=== PATIENT | female | born 1985 | race Two or more races ===

== ENCOUNTER 2024-12-02 10:41 | Emergency (ER) | payer MEDICAID, OTHER ==
[~2024-12-02] VITALS: Ht 162.6 cm; Wt 64.0 kg
[2024-12-02] MEDS ORDERED: HYDR-3682 PO (12:34)
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
[2024-12-02 12:38] VITALS: BP 118/68; PULSE 63; RESP 16; TEMP 98.3; O2SAT 99
== END 2024-12-02 12:40 | disposition home or self-care (01) ==
LOC: ER 10:41 → EDBD 10:41 → ER 12:40
DX: F43.22 Adjustment disorder with anxiety (principal); Z79.899 Other long term (current) drug therapy